=== PATIENT | male | born 1960 | race Caucasian/White ===

== ENCOUNTER → 2017-02-09 | Outpatient (CLI) | payer BC | LOC: ZCOL.LAB 15:49 | DX: R22.31 Localized swelling, mass and lump, right upper limb (principal) ==

== ENCOUNTER → 2017-07-10 | Outpatient (CLI) | payer BC | LOC: COL.RAD 09:00 | DX: K76.0 Fatty (change of) liver, not elsewhere classified (principal); R63.5 Abnormal weight gain ==

== ENCOUNTER 2017-07-24 08:34 | Day surgery (SDC) | payer BC ==
[~2017-07-24] VITALS: Ht 185.4 cm; Wt 86.8 kg
[2017-07-24 08:47] VITALS: BP 123/85; PULSE 68; TEMP 97.7
[2017-07-24] MEDS ORDERED: MULTI VITAMINS1 TAB PO (08:50)
[2017-07-24 10:45] VITALS: BP 119/84; PULSE 81; TEMP 98.5
[2017-07-24 11:00] VITALS: BP 131/87; PULSE 79
[2017-07-24 11:15] VITALS: BP 122/80; PULSE 69
[2017-07-24 11:30] VITALS: BP 118/82; PULSE 77
[2017-07-24 15:58] VITALS: BP 118/81; PULSE 68
== END 2017-07-24 11:45 | disposition home or self-care (01) ==
LOC: SDCO 08:34
DX: Z12.11 Encounter for screening for malignant neoplasm of colon (principal); K64.0 First degree hemorrhoids; Z85.828 Personal history of other malignant neoplasm of skin
CPT/HCPCS: OP; J2250; J2405; J3010; J7030

== ENCOUNTER 2022-07-19 14:39 | Outpatient (CLI) | payer BC ==
[~2022-07-19] VITALS: Ht 185.4 cm; Wt 89.4 kg
[~2022-07-19 14:39] MED LIST: MULTI VITAMINS1 TAB PO
[2022-07-19 14:57] VITALS: BP 119/79; PULSE 70; TEMP 97.8
--- NOTE | 2022-07-19 15:14 | NUR ---
PT RECIEVED INJ. FROM [employer]. PT HAS HAD MEDICATION BEFORE. NO WAITING IS REQUIRED PER [facility]. PT ACCOMPANIED BY . PT RESP EVEN AND UNLABORED. AMBULATED TO ELEVATOR
== END 2022-07-19 15:17 | disposition home or self-care (01) ==
LOC: EUO 14:39
DX: C61 Malignant neoplasm of prostate (principal)
CPT/HCPCS: J9217-JG